=== PATIENT | male | born 1995 | race Caucasian/White ===

== ENCOUNTER 2018-12-30 00:10 | Emergency (ER) | payer BC ==
[~2018-12-30] VITALS: Ht 188 cm; Wt 83.9 kg
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
[2018-12-30] MEDS ORDERED: LIDOCAINE 1% INJ 50 ML MDV IJ ONE ×2 (00:42→00:50)
--- NOTE | 2018-12-30 00:55 | NUR ---
AT THE BED SIDE
[2018-12-30] MEDS: LIDOCAINE 1% INJ 50 ML MDV IJ ONE (01:04)
[2018-12-30 01:17] VITALS: BP 118/55
--- NOTE | 2018-12-30 01:17 | NUR ---
Patient discharged to home in stable condition. Written and verbal after care instructions given. Patient verbalizes understanding of instruction.
== END 2018-12-30 01:18 | disposition home or self-care (01) ==
LOC: ER 00:12
DX: S61.511A Laceration without foreign body of right wrist, initial encounter (principal); F32.9 Major depressive disorder, single episode, unspecified; Z88.2 Allergy status to sulfonamides; Z88.1 Allergy status to other antibiotic agents; W26.0XXA Contact with knife, initial encounter; Y93.89 Activity, other specified; Y92.89 Other specified places as the place of occurrence of the external cause; Y99.8 Other external cause status
CPT/HCPCS: 12002; 99283; A6403; J3490